=== PATIENT | female | born 1990 | race Caucasian/White ===

== ENCOUNTER 2016-11-24 05:16 | Emergency (ER) | payer SELFPAY ==
[2016-11-24] MEDS ORDERED: IPRATROPIUM/ALBUTEROL 0.5-2.5 MG/3 ML AMPUL NEB ONE (06:42)
[2016-11-24] MEDS ORDERED: PREDNISONE 20 MG TABLET PO ONE (06:42)
[2016-11-24] MEDS ORDERED: ALBUTEROL SULFATE 0.083% NEB 2.5 MG/3 ML AMPUL NEB ONE (06:42)
[2016-11-24] MEDS ORDERED: ALBUTEROL SULFATE HFA (90 MCG/PUFF) 8 GM MDI (1 MDI/ER DISP) IH ONE (08:13)
--- NOTE | 2016-11-24 08:14 | ER Document Report ---
ED General - General Chief Complaint: Sore Throat Stated Complaint: SWOLLEN THROAT Time Seen by Provider: 11/24/16 06:41 TRAVEL OUTSIDE OF THE [place] IN LAST 30 DAYS: No - HPI Patient complains to provider of: Cough throat pain right ear pain Notes: Patient coming in with above-stated symptoms ongoing for the last 3 days but no fevers chills no recent travel no recent swimming or scuba diving. Patient states no relief with [id number] medications. By my evaluation patient is playing on her iPhone no obvious distress. Patient does have history of tonsillectomy. Denies any fever chills nausea vomiting diarrhea - Related Data Allergies/Adverse Reactions: acetaminophen [From Tylenol] Allergy (Verified 12/08/13 22:49) amoxicillin [Amoxicillin] Allergy (Verified 12/08/13 22:48) cephalexin monohydrate [From Keflex] Allergy (Verified 12/08/13 22:48) Past Medical History - Social History Smoking Status: Current Every Day Smoker Frequency of alcohol use: None Drug Abuse: Marijuana Family History: Reviewed & Not Pertinent Patient has suicidal ideation: No Patient has homicidal ideation: No Renal/ Medical History: Denies: Hx Peritoneal Dialysis Past Surgical History: Reports: Hx Cholecystectomy, Hx Orthopedic Surgery - R knee x 2, Hx Tonsillectomy Review of Systems - Review of Systems EENT: Ear pain, Throat pain Cardiovascular: No symptoms reported Respiratory: Cough Gastrointestinal: No symptoms reported Genitourinary: No symptoms reported Female Genitourinary: No symptoms reported Musculoskeletal: No symptoms reported Skin: No symptoms reported Hematologic/Lymphatic: No symptoms reported Neurological/Psychological: No symptoms reported -: Yes All other systems reviewed and negative Physical Exam - Vital signs Vitals: Temp Pulse Resp BP Pulse Ox 98.0 F 71 16 123/98 H 97 11/24/16 05:23 11/24/16 05:23 11/24/16 05:23 11/24/16 05:23 11/24/16 05:23 Interpretation: Normal - General General appearance: Appears well, Alert - HEENT Head: Normocephalic, Atraumatic Eyes: Normal Conjunctiva: Normal Cornea: Normal Eyelashes: Normal Pupils: PERRL Ears: Normal External canal: Normal Tympanic membrane: Normal Sinus: Normal Nasal: Normal Pharynx: Normal Neck: Normal - Respiratory Respiratory status: No respiratory distress Chest status: Nontender Breath sounds: Wheezing Chest palpation: Normal - Cardiovascular Rhythm: Regular Heart sounds: Normal auscultation Murmur: No - Abdominal Inspection: Normal Distension: No distension Bowel sounds: Normal Tenderness: Nontender Organomegaly: No organomegaly - Back Back: Normal, Nontender - Extremities General upper extremity: Normal inspection, Nontender, Normal color, Normal ROM , Normal temperature General lower extremity: Normal inspection, Nontender, Normal color, Normal ROM , Normal temperature, Normal weight bearing. No: Alhaji's sign - Neurological Neuro grossly intact: Yes Cognition: Normal Orientation: AAOx4 [place] Coma Scale Eye Opening: Spontaneous [place] Coma Scale Verbal: Oriented [place] Coma Scale Motor: Obeys Commands [place] Coma Scale Total: 15 Speech: Normal Motor strength normal: LUE, RUE, LLE, RLE Sensory: Normal - Psychological Associated symptoms: Normal affect, Normal mood - Skin Skin Temperature: Warm Skin Moisture: Dry Skin Color: Normal Course - Re-evaluation Re-evalutation: 11/24/16 14:58 Patient coming in for evaluation of cough patient's lung examination patient was found to be extremely wheezing more likely due to her tobacco use. Better after DuoNeb. Strep swab was negative. More likely patient has underlying bronchitis causing her issues patient will be discharged home prednisone and albuterol. - Vital Signs Vital signs: Temp Pulse Resp BP Pulse Ox 97.9 F 78 18 120/57 L 96 11/24/16 08:22 11/24/16 08:22 11/24/16 08:22 11/24/16 08:22 11/24/16 08:22 Discharge - Discharge Clinical Impression: Bronchitis Condition: Good Disposition: HOME, SELF-CARE Instructions: Bronchitis ([facility]), Sore Throat ([facility]), Ibuprofen (General) ([facility]) Additional Instructions: Follow-up with your primary care physician. Your laboratory studies today show no signs of strep infection. More likely your ear pain and throat pain is due to underlying bronchitis. It is very important that she stop smoking so that your body can start the healing process. The prednisone that we prescribed to aid in your throat and ear pain. He may also take Tylenol Motrin over-the- counter. Prescriptions: Prednisone [Deltasone] 60 mg PO DAILY 5 Days Forms: Smoking Cessation Education
[2016-11-24 08:23] VITALS: BP 120/57
== END 2016-11-24 08:22 | disposition home or self-care (01) ==
LOC: ER 05:16
DX: J40 Bronchitis, not specified as acute or chronic (principal); J02.9 Acute pharyngitis, unspecified; H92.01 Otalgia, right ear; R05 Cough; R06.2 Wheezing; F17.200 Nicotine dependence, unspecified, uncomplicated; Z90.89 Acquired absence of other organs; Z88.6 Allergy status to analgesic agent; Z88.0 Allergy status to penicillin; Z88.1 Allergy status to other antibiotic agents
CPT/HCPCS: 94640 ×2; 99283; 87070; 87880; J7512; J3490; J7620